=== PATIENT | female | born 1985 | race Caucasian/White ===

== ENCOUNTER 2020-01-22 15:06 | Emergency (ER) | payer OTHER ==
[~2020-01-22] VITALS: Ht 162.6 cm; Wt 61.0 kg
[2020-01-22] MEDS ORDERED: ONDANSETRON 4MG ODT PO STA (15:24)
[2020-01-22] MEDS ORDERED: HYDROCODONE/ACETAMINOPHEN 5/325MG TABLET PO STA (15:24)
[2020-01-22 16:01] LABS: BASOPHILS % 0.4 % (0.0-2.0); EOSINOPHILS % 0.1 % (0.0-5.0); HEMOGLOBIN. 14.9 g/dL (12.0-16.0); LYMPHOCYTES % 7.6 % (20.0-50.0); MEAN CORPUSCULAR HEMOGLOBIN 30.6 pg (28.0-32.0); MEAN CORPUSCULAR VOLUME 90.7 fL (81.0-99.0); MEAN PLATELET VOLUME 9.1 fl (7.4-10.4); MONOCYTES % 5.8 % (2.0-8.0); NEUTROPHILS % 86.1 % (40.0-76.0); PLATELET 284 x1000/uL (130-400); RED BLOOD CELL COUNT 4.86 mill/uL (4.2-5.4); RED CELL DISTRIBUTION WIDTH 13.6 % (11.6-14.6)
[2020-01-22 16:06] LABS: CHLORIDE 104 mEq/L (98-107)
[2020-01-22 19:22] LABS: CLARITY URINE CLOUDY (CLEAR); PH URINE 5.5 (4.5-8.0); PROTEIN URINE 1+ (NEGATIVE); SPECIFIC GRAVITY URINE 1.034 (1.005-1.030)
[2020-01-22 19:23] LABS: KETONES URINE 4+ (NEGATIVE)
[2020-01-22 19:24] LABS: LEUKOCYTE ESTERASE URINE 1+ (NEGATIVE); NITRITE URINE NEGATIVE (NEGATIVE); OCCULT BLOOD URINE 1+ (NEGATIVE)
[2020-01-22 19:25] LABS: COLOR URINE YELLOW (YELLOW)
[2020-01-22] MEDS ORDERED: ONDANSETRON 4MG ODT PO ONE (19:45)
[2020-01-22 20:21] VITALS: BP 135/91
== END 2020-01-22 20:25 | disposition home or self-care (01) ==
LOC: ER 15:06
DX: K80.20 Calculus of gallbladder without cholecystitis without obstruction (principal); N83.202 Unspecified ovarian cyst, left side
CPT/HCPCS: 36415; 74176; 76705; 80053; 81003; 81025; 83690; 85025; 93005; 99285; Q0162

== ENCOUNTER 2022-07-03 19:50 | Emergency (ER) | payer MEDICAID, OTHER ==
[~2022-07-03] VITALS: Ht 162.6 cm; Wt 64.0 kg
[2022-07-03 20:13] VITALS: BP 148/76
[2022-07-03] MEDS ORDERED: HYDROCODONE/ACETAMINOPHEN 5/325MG TABLET PO ONE (21:30)
[2022-07-03] MEDS ORDERED: IBUPROFEN 400MG TABLET PO ONE (21:30)
[2022-07-03] MEDS ORDERED: LIDOCAINE HCL/PF 1% 10 MG/ML 5ML VIAL INFIL ONE (22:00)
[2022-07-03] MEDS ORDERED: IBUP-2028 MT (23:25)
== END 2022-07-04 00:04 | disposition home or self-care (01) ==
LOC: ER 19:50
DX: S63.253A Unspecified dislocation of left middle finger, initial encounter (principal); X58.XXXA Exposure to other specified factors, initial encounter; Y93.89 Activity, other specified; Y92.89 Other specified places as the place of occurrence of the external cause; Y99.8 Other external cause status
CPT/HCPCS: 26770; 73130; 73140; 99284